=== PATIENT | female | born 1970 | race Hispanic/Latino ===

== ENCOUNTER 2021-03-03 16:14 | Emergency (ER) | payer OTHER ==
[~2021-03-03] VITALS: Ht 167.6 cm; Wt 62.6 kg
[2021-03-03 16:35] VITALS: BP 121/75
--- NOTE | 2021-03-03 16:39 | NUR ---
ARRIVAL PATIENT ARRIVED TO [facility], C/O FATIGUE AND DRY MOUTH SINCE 0100 THIS MORNING, DENIES DRINKING ANY WATER TODAY, VITAL SIGNS OBTAINED AND DOCTOR INES NOTIFIED OF PATIENT'S ARRIVAL.
--- NOTE | 2021-03-03 16:43 | ER.PDOC ---
General Chief Complaint: General Complaint Stated Complaint: DRY MOUTH,FATIGUE TRAVEL OUT OF US: No Time seen by MD: 16:40 Source: patient Exam Limitations: no limitations History of Present Illness Initial Comments 50-year-old female presents complaining of fatigue and dry mouth. This has been present since around 1 PM approximately 3-1/2 hours ago. She denies any changes to her daily routines. She does report that she has not had much to drink today.No aggravating or alleviating factors are noted. Symptoms are moderate. She denies chest pain abdominal pain vomiting and shortness of breath. Further, no fever or diarrhea. No recent sick contacts. Allergies: Coded Allergies: No Known Allergies (Unverified , 03/03/21) Past Medical History Medical History: hypertension Surgical History: cholecystectomy, Social History Smoking: non-smoker Alcohol Use: none Drug Use: none Review of Systems Constitutional: malaise, weakness EENTM: denies eye pain, denies blurred vision; other (dry mouth) Respiratory: denies cough, denies orthopnea Cardiovascular: denies chest pain, denies edema Gastrointestinal: denies abdominal pain, denies diarrhea, denies nausea, denies vomiting Genitourinary: denies hematuria, denies pain Musculoskeletal: denies back pain, denies gout Skin: denies change in color, denies change in hair/nails Psychiatric/Neurological: denies anxiety, denies depressed Hematologic/Lymphatic: denies anemia, denies blood clots Immunological/Allergic: denies food allergy, denies grass allergy Physical Exam General Appearance: No Apparent Distress EENT: eyes nml inspection, nml ENT inspection Neck: Non-Tender, Full Range of Motion Respiratory: chest non-tender, lungs clear, normal breath sounds CVS: reg rate & rhythm, no murmur Gastrointestinal: Normal Bowel Sounds Back: Normal Inspection, No CVA Tenderness Extremities: Normal Range of Motion, Non-Tender Neurologic/Psychiatric: No Motor/Sensory Deficits, Alert, Normal Mood/Affect, Oriented x 3 Skin: Normal Color, Warm/Dry Results/Orders Results/Orders Orders - LILIA CHACON MD Cbc With Auto Diff (03/03/21 16:38) Basic Metabolic Panel (03/03/21 16:38) Hcg, Quantitative (03/03/21 16:38) Vital Signs Date Time Temp Pulse Resp B/P (MAP) Pulse Ox O2 Delivery O2 Flow Rate FiO2 03/03/21 17:21 98.6 66 18 101/64 (76) 96 Room Air 03/03/21 16:35 98.6 63 18 96 03/03/21 16:35 98.6 63 18 121/75 (90) 96 Room Air 03/03/21 16:35 98.6 63 18 Laboratory Tests Test 03/03/21 16:45 White Blood Count 5.7 10^3/uL (4.5-11.0) Red Blood Count 3.51 10^6/uL (4.00-5.20) L Hemoglobin 10.3 g/dL (12.0-15.0) L Hematocrit 32.0 % (36.0-46.0) L Mean Corpuscular Volume 91.2 fL (78-100) Mean Corpuscular Hemoglobin 29.3 pg (26-34) Mean Corpuscular Hemoglobin Concent 32.2 g/dL (33-36.5) L Red Cell Distribution Width 13.8 % (11.5-14.5) Platelet Count 239 10^3/uL (150-400) Mean Platelet Volume 10.4 fL (7.8-11.0) Neutrophils (%) (Auto) 63.3 % (41.0-85.0) Lymphocytes (%) (Auto) 25.4 % (24.0-44.0) Monocytes (%) (Auto) 8.2 % (5.0-12.0) Neutrophils # (Auto) 3.6 10^3/uL (1.8-7.7) Lymphocytes # (Auto) 1.45 10^3/uL1 (1.0-4.8) Monocytes # (Auto) 0.5 10^3/uL (0.3-0.8) Absolute Immature Granulocyte (auto 0.01 10^3 u/L (0-2) Absolute Eosinophils (auto) 0.1 10^3/uL (0.0-0.2) Immature Granulocytes % 0.20 % (0.00-0.50) Eosinophils % 2.5 % (0.0-5.0) Basophils % 0.4 % (0.0-0.2) H Basophils # 0.0 10^3/uL (0.0-0.1) Sodium Level 141 mmol/L (132-145) Potassium Level 3.7 mmol/L (3.6-5.2) Chloride Level 108.0 mmol/L (96-109) Carbon Dioxide Level 25.1 mmol/L (20.0-32) Glucose Level 171 mg/dL (70-110) H Blood Urea Nitrogen 17 mg/dL (7-18) Creatinine 0.66 mg/dL (0.59-1.40) Calcium Level 7.8 mg/dL (8.4-10.5) L Anion Gap 11.6 Estimated GFR () 115.2 (>/=60) Est GFR (CKD-EPI)(Non-Afr [place]ian) 95.2 (>/=60) BUN/Creatinine Ratio 25.0 Human Chorionic Gonadotropin, Quant < 5 mIU/mL Progress Progress hyperglycemia and anemia, both chronic. otherwise workup normal. no further workup or treatment indicated here. strict f/u and return precautions given and understanding voiced. beckie [email or web address]. ER DEPART Departure Time of Disposition: 17:28 Disposition: 01 HOME / SELF CARE / HOMELESS Impression: Primary Impression: Dry mouth Additional Impressions: Fatigue Anemia Hyperglycemia Condition: Stable Patient Instructions: Anemia, FAQs Referrals: PCP,UNKNOWN (PCP) PRIMARY CARE PROVIDER Duration or Time Spent with Pa: 15 min Problem Qualifiers Additional Impressions: Fatigue Fatigue type: unspecified Qualified Codes: R53.83 - Other fatigue Anemia Anemia type: unspecified type Qualified Codes: D64.9 - Anemia, unspecified LILIA CHACON MD Mar 03, 2021 16:43
[2021-03-03 16:54] LABS: BASOPHIL % 0.4 % (0.0-0.2); EOSINOPHIL # 0.1 10^3/uL (0.0-0.2); EOSINOPHIL % 2.5 % (0.0-5.0); LYMPHOCYTES # 1.45 10^3/uL1 (1.0-4.8); LYMPHOCYTES % 25.4 % (24.0-44.0); MEAN CORP HGB 29.3 pg (26-34); MONOCYTES # 0.5 10^3/uL (0.3-0.8); MONOCYTES % 8.2 % (5.0-12.0); NEUTROPHIL # 3.6 10^3/uL (1.8-7.7); NEUTROPHILS % 63.3 % (41.0-85.0); PLATELET COUNT 239 10^3/uL (150-400); RED CELL DISTRIBUTION WIDTH 13.8 % (11.5-14.5)
[2021-03-03 17:13] LABS: CALCIUM 7.8 mg/dL (8.4-10.5); CARBON DIOXIDE 25.1 mmol/L (20.0-32); GLUCOSE 171 mg/dL (70-110)
[2021-03-03 17:21] VITALS: BP 101/64
== END 2021-03-03 17:33 | disposition home or self-care (01) ==
LOC: ER 16:14
DX: E11.65 Type 2 diabetes mellitus with hyperglycemia (principal); R53.83 Other fatigue; D64.9 Anemia, unspecified; I10 Essential (primary) hypertension; Z90.49 Acquired absence of other specified parts of digestive tract; Z79.899 Other long term (current) drug therapy
CPT/HCPCS: 36415; 80048; 84702; 85025; 99283